=== PATIENT | male | born 2000 | race African-American/Black ===

== ENCOUNTER 2024-02-24 13:56 | Emergency (ER) | payer OTHER, SELFPAY ==
[~2024-02-24] VITALS: Ht 180.3 cm; Wt 79.7 kg
[2024-02-24] MEDS ORDERED: IBUP-1022 PO (15:57)
[2024-02-24 16:06] VITALS: BP 138/73; TEMP 97.3; O2SAT 100
== END 2024-02-24 16:07 | disposition home or self-care (01) ==
LOC: M ED 13:56
DX: M25.462 Effusion, left knee (principal)

== ENCOUNTER → 2025-01-02 | Outpatient (CLI) | payer OTHER ==
[~2025-01-02] MED LIST: IBUP-1022 PO
== END ==
LOC: M SOG 07:52
PROVIDERS: ATTEND Neuromusculoskeletal Medicine, Sports Medicine
DX: S62.634A Displaced fracture of distal phalanx of right ring finger, initial encounter for closed fracture (principal); Y93.9 Activity, unspecified; Y92.9 Unspecified place or not applicable

== ENCOUNTER → 2025-01-23 | Outpatient (CLI) | payer OTHER | LOC: M SOG 13:20 | PROVIDERS: ATTEND Physician Assistant | DX: S62.634A Displaced fracture of distal phalanx of right ring finger, initial encounter for closed fracture (principal); Y93.9 Activity, unspecified; Y92.9 Unspecified place or not applicable ==

== ENCOUNTER → 2025-02-06 | Outpatient (CLI) | payer OTHER ==
[~2025-02-06] MED LIST changes: +ACET-897 PO; +PERC5TAB12 PO
== END ==
LOC: M SOG 11:55
PROVIDERS: ATTEND Orthopaedic Surgery Hand Surgery
DX: S62.634A Displaced fracture of distal phalanx of right ring finger, initial encounter for closed fracture (principal)

== ENCOUNTER 2025-02-10 08:28 | Day surgery (SDC) | payer OTHER ==
[~2025-02-10] VITALS: Ht 180.3 cm; Wt 86.8 kg
[~2025-02-10 08:28] MED LIST changes: -PERC5TAB12 PO
[2025-02-10] MEDS ORDERED: LR 1,000 ML IV SCH ×2 (08:50→11:50)
[2025-02-10] MEDS ORDERED: KETOROLAC 30 MG/ML 1ML VIAL As Ordered ONE (09:33)
[2025-02-10] MEDS ORDERED: MIDAZOLAM INJ 2MG/2ML VIAL As Ordered ONE (09:33)
[2025-02-10] MEDS ORDERED: fentaNYL 100 MCG/2 ML INJECTION As Ordered ONE (09:33)
[2025-02-10] MEDS ORDERED: LIDOCAINE 2% 100MG/5ML SDV (FOR ANES.) As Ordered ONE (09:33)
[2025-02-10] MEDS ORDERED: ONDANSETRON 4MG 2ML VIAL As Ordered ONE (09:33)
[2025-02-10] MEDS ORDERED: propofoL 200 MG/20 ML VIAL As Ordered ONE (09:33)
[2025-02-10] MEDS: ceFAZolin SODIUM 2 GM VIAL As Ordered ONE (10:50)
[2025-02-10] MEDS ORDERED: ceFAZolin SOD 2 GM IV ONCE IV ONE (10:50)
[2025-02-10] MEDS ORDERED: SUCCINYLCHOLINE 100MG/5ML SYRINGE As Ordered ONE (11:12)
[2025-02-10] MEDS ORDERED: oxyCODONE 5MG TAB PO PRN (11:50)
[2025-02-10] MEDS ORDERED: HYDROMORPHONE HCL 0.5 MG/ 0.5 ML SYRINGE IV PRN (11:50)
[2025-02-10] MEDS ORDERED: fentaNYL 100 MCG/2 ML INJECTION IV PRN (11:50)
[2025-02-10] MEDS ORDERED: PERC5TAB12 PO (12:12)
[2025-02-10] MEDS: ONDANSETRON 4MG 2ML VIAL IV PRN (12:55)
[2025-02-10 13:20] VITALS: BP 132/82; TEMP 97.7; O2SAT 100
== END 2025-02-10 13:26 | disposition home or self-care (01) ==
LOC: M SDC 08:28
PROVIDERS: ATTEND Orthopaedic Surgery Hand Surgery
DX: S62.634A Displaced fracture of distal phalanx of right ring finger, initial encounter for closed fracture (principal); W31.9XXA Contact with unspecified machinery, initial encounter; Y92.9 Unspecified place or not applicable; Y93.9 Activity, unspecified
CPT/HCPCS: 26765; 71045; 76000; J0330; J0665; J0690; J1100; J1885; J2250; J2405; J3010

== ENCOUNTER → 2025-04-08 | Outpatient (CLI) | payer OTHER ==
[~2025-04-08] MED LIST changes: +PERC5TAB12 PO
== END ==
LOC: M SOG 07:34
PROVIDERS: ATTEND Physician Assistant
DX: S62.634D Displaced fracture of distal phalanx of right ring finger, subsequent encounter for fracture with routine healing (principal)